=== PATIENT | female | born 1995 | race Two or more races ===

== ENCOUNTER 2022-06-13 23:03 | Day surgery (SDC) | payer OTHER ==
[2022-06-13 23:33] VITALS: BMI 26.0
[2022-06-14] MEDS ORDERED: hydrALAZINE 20 MG/ML VIAL SLOW IVP PRN (01:31)
[2022-06-14 01:59] LABS: Bilirubin Neg (Negative); Blood, Urine Negative (Negative); Clarity Clear (Clear); Glucose, Urine (Dipstick) Normal (Negative); Ketone, Urine 15 mg/dL (Negative); Leukocyte 25 (Negative); Nitrite Negative (Negative); Protein, Urine (Dipstick) 15 mg/dl (Neg-Trace); Specific Gravity, Urine 1.015 (1.005-1.030); Urobilinogen Normal mg/dL (Less than 2)
[2022-06-14 02:16] LABS: Bacteria/HPF None Seen HPF (None Seen); CAUTI Indications for Culture Dysuria,urgency,freq; RBC/HPF 0-3 HPF (0-3); Squamous Epithelial 0-3 HPF (0-3); Urine Culture Reflex No No; WBC/HPF 0-3 HPF (0-3)
== END 2022-06-14 04:15 | disposition home or self-care (01) ==
LOC: CSHLD/OP 23:03
PROVIDERS: ATTEND Obstetrics & Gynecology
DX: O99.513 Diseases of the respiratory system complicating pregnancy, third trimester (principal); R06.02 Shortness of breath; O26.893 Other specified pregnancy related conditions, third trimester; R10.30 Lower abdominal pain, unspecified; O21.2 Late vomiting of pregnancy; R51.9 Headache, unspecified; O23.593 Infection of other part of genital tract in pregnancy, third trimester; N89.8 Other specified noninflammatory disorders of vagina; R35.89 Other polyuria; Z3A.35 35 weeks gestation of pregnancy
CPT/HCPCS: 81001; 87086; 87480; 87510; 87660; 99285

== ENCOUNTER 2022-07-04 04:42 | Inpatient (IN) | payer MEDICAID, OTHER ==
[2022-07-04 05:23] VITALS: BMI 25.9
[2022-07-04 05:43] LABS: Fetal Membranes Rupture RUPTURE DETECTED (No Rupture)
[2022-07-04] MEDS ORDERED: Ondansetron PF 4 MG/2 ML Vial IVP PRN ×2 (05:56→11:04)
[2022-07-04] MEDS ORDERED: Tranexamic Acid 1,000 MG/10 ML VIAL IVP PRN (05:56)
[2022-07-04] MEDS ORDERED: hydrALAZINE 20 MG/ML VIAL SLOW IVP PRN (05:56)
[2022-07-04] MEDS ORDERED: Ibuprofen 800 MG TAB PO PRN (05:56)
[2022-07-04] MEDS ORDERED: Acetaminophen 500 MG TAB PO PRN (05:56)
[2022-07-04] MEDS ORDERED: Lidocaine 1% (PF) 30 ML VIAL SC PRN (05:56)
[2022-07-04] MEDS ORDERED: Carboprost 250 MCG/ML AMP IM PRN (05:56)
[2022-07-04] MEDS ORDERED: Promethazine HCl 25 MG/ML VIAL IM PRN ×2 (05:56→11:04)
[2022-07-04] MEDS ORDERED: Misoprostol 200 MCG TAB PR PRN (05:56)
[2022-07-04] MEDS ORDERED: Methylergonovine 0.2 MG/ML VIAL IM PRN (05:56)
[2022-07-04] MEDS ORDERED: NS w/ Oxytocin 30 units 500 ML IV SCH ×2 (06:00→06:15)
[2022-07-04 06:28] LABS: Hemoglobin 12.3 g/dL (12.0-15.5); Mean Corpuscular HGB CONC 33.5 g/dL (32.0-36.0); Mean Corpuscular Hemoglobin 26.7 pg (27.0-33.0); Mean Corpuscular Volume 79.8 fl (81.6-98.3); Mean Platelet Volume 11.5 fl (7.4-10.4); Platelet Count 164 10x3/uL (150-450); RBC Distribution Width 15.7 % (11.5-14.5); White Blood Cell (WBC) Count 8.2 10x3/uL (3.5-10.5)
[2022-07-04 07:01] LABS: Syphilis Antibody Nonreactive (Nonreactive); Syphilis Antibody Index 0.03 S/CO (<1.00 Non-Reactive)
[2022-07-04 07:02] LABS: HBSAg Index 0.12 S/CO (0-0.99); Hep B Surf Ag - L&D Non-Reactive S/CO (NonReactive)
[2022-07-04] MEDS ORDERED: Bupivacaine 0.25% HCL 30 ML VIAL ONE (08:00)
[2022-07-04] MEDS ORDERED: Fentanyl 2 mcg/Bup 0.1% Cadd 100 ML ONE (10:27)
[2022-07-04] MEDS ORDERED: Naloxone HCl 0.4 mg/ml Vial IVP PRN ×2 (11:04)
[2022-07-04] MEDS ORDERED: ePHEDrine Sulfate 50 MG/10 ML VIAL SLOW IVP PRN (11:04)
[2022-07-04] MEDS ORDERED: Moisturizing Cream (Eucerin) 113 GM JAR TOP PRN (11:04)
[2022-07-04] MEDS ORDERED: diphenhydrAMINE 50 MG/ML VIAL IVP PRN (11:04)
[2022-07-04] MEDS ORDERED: Acetaminophen 325 MG TAB PO PRN (11:04)
[2022-07-04] MEDS ORDERED: Lactated Ringer's 500 ML IV PRN (11:04)
[2022-07-04] MEDS ORDERED: Fentanyl 2 mcg/Bupivacaine 0.1% Cassette 100 ML EPIDURAL SCH (11:15)
[2022-07-04] MEDS ORDERED: Communication Order-Pharmacy FS SCH (11:15)
[2022-07-04] MEDS ORDERED: Penicillin G Potassium 5 MILL.UNITS VIAL ONE (13:27)
[2022-07-04] MEDS ORDERED: Penicillin G Potassium 5 MILL.UNITS in Sodium Chloride 0.9% 100 ML IVPB SCH (13:30)
[2022-07-04] MEDS: Penicillin G 2.5 MILL.units 2.5 MILL.UNITS in Premix Bag 1 BAG IVPB SCH ×2 (16:57→21:27)
[2022-07-05] MEDS: Penicillin G 2.5 MILL.units 2.5 MILL.UNITS in Premix Bag 1 BAG IVPB SCH ×2 (01:11→07:29)
[2022-07-05] MEDS ORDERED: hydrALAZINE 20 MG/ML VIAL SLOW IVP PRN (02:06)
[2022-07-05] MEDS ORDERED: Bisacodyl 10 MG SUPP PR PRN (02:06)
[2022-07-05] MEDS ORDERED: Boostrix 0.5 ML (Tdap) VIAL (>/=7 yrs of age) IM ONE (02:06)
[2022-07-05] MEDS ORDERED: Milk Of Magnesia 30 ML UDCUP PO PRN (02:06)
[2022-07-05] MEDS: Ibuprofen 800 MG TAB PO SCH ×3 (03:25→20:57)
[2022-07-05] MEDS: Ferrous Sulfate 325 MG TAB PO SCH ×2 (07:27→15:14)
[2022-07-05] MEDS: Docusate 100 MG CAP PO SCH ×2 (08:18→20:58)
[2022-07-05] MEDS ORDERED: Benzocaine-Menthol 82.5 ML CAN TOP PRN (08:36)
[2022-07-05] MEDS: HYDROcodone/Acetaminophen 5/325 mg Tablet PO PRN ×3 (09:07→21:01)
[2022-07-06 03:28] LABS: #Eosinphils 0.1 10x3/uL (0.0-0.5); #Monocytes 0.7 10x3/uL (0.0-1.1); #Neutrophils 6.1 10x3/uL (1.5-8.4); %Basophils 0.2 % (0.0-2.0); %Eosinophils 1.5 % (0.0-6.0); %Lymphocytes 24.7 % (18.0-47.0); %Monocytes 7.2 % (0.0-10.0); %Neutrophils 66.1 % (40.0-75.0); Hemoglobin 9.9 g/dL (12.0-15.5); Mean Corpuscular HGB CONC 32.5 g/dL (32.0-36.0); Mean Corpuscular Hemoglobin 26.8 pg (27.0-33.0); Mean Corpuscular Volume 82.7 fl (81.6-98.3); Mean Platelet Volume 11.7 fl (7.4-10.4); Platelet Count 155 10x3/uL (150-450); RBC Distribution Width 15.9 % (11.5-14.5); Red Blood Cell (RBC) Count 3.69 10x6/uL (3.90-5.03); White Blood Cell (WBC) Count 9.2 10x3/uL (3.5-10.5)
[2022-07-06] MEDS: Ibuprofen 800 MG TAB PO SCH ×3 (04:47→20:09)
[2022-07-06] MEDS: Ferrous Sulfate 325 MG TAB PO SCH ×2 (09:23→17:33)
[2022-07-06] MEDS: Docusate 100 MG CAP PO SCH ×2 (09:23→20:09)
[2022-07-07 07:49] VITALS: BP 123/82; TEMP 98.6
[2022-07-07] MEDS: HYDROcodone/Acetaminophen 5/325 mg Tablet PO PRN (11:09)
[2022-07-07] MEDS: Ferrous Sulfate 325 MG TAB PO SCH (11:10)
[2022-07-07] MEDS: Docusate 100 MG CAP PO SCH (11:10)
== END 2022-07-07 12:30 | disposition home or self-care (01) | DRG 806 ==
LOC: CSHLD/OP 04:42 → CSHLD 05:56 → CSHPP 07-05 05:55
PROVIDERS: ADMIT Obstetrics & Gynecology; ATTEND Obstetrics & Gynecology
PROC: 10E0XZZ Delivery of Products of Conception, External Approach (ICD-10-PCS; principal; 2022-07-05)
PROC: 0UQGXZZ Repair Vagina, External Approach (ICD-10-PCS; 2022-07-05)
DX: O42.92 Full-term premature rupture of membranes, unspecified as to length of time between rupture and onset of labor (principal); O71.4 Obstetric high vaginal laceration alone; Z37.0 Single live birth; Z3A.38 38 weeks gestation of pregnancy; O99.824 Streptococcus B carrier state complicating childbirth; O69.81X0 Labor and delivery complicated by cord around neck, without compression, not applicable or unspecified
CPT/HCPCS: 36415; 51702; 84112; 85025; 85027; 86780; 86850; 86900; 86901; 87340; 99285; J2540; S0020

== ENCOUNTER 2023-11-29 13:47 | Inpatient (IN) | payer OTHER ==
[~2023-11-29 13:47] MED LIST: Bupivacaine 0.25% HCL 30 ML VIAL ONE; ePHEDrine Sulfate 50 MG/10 ML VIAL ONE
[2023-11-29] MEDS ORDERED: Acetaminophen 500 MG TAB PO PRN (14:33)
[2023-11-29] MEDS ORDERED: Promethazine HCl 25 MG/ML VIAL IM PRN ×2 (14:33→15:42)
[2023-11-29] MEDS ORDERED: Docusate 100 MG CAP PO PRN (14:33)
[2023-11-29] MEDS ORDERED: Diphenoxylate HCl/Atropine Tablet PO PRN ×2 (14:33)
[2023-11-29] MEDS ORDERED: Carboprost 250 MCG/ML AMP IM PRN (14:33)
[2023-11-29] MEDS ORDERED: hydrALAZINE 20 MG/ML VIAL SLOW IVP PRN (14:33)
[2023-11-29] MEDS ORDERED: Ondansetron PF 4 MG/2 ML Vial IVP PRN ×2 (14:33→15:42)
[2023-11-29] MEDS ORDERED: Lidocaine 1% (PF) 30 ML VIAL SC PRN (14:33)
[2023-11-29] MEDS ORDERED: Misoprostol 200 MCG TAB PR PRN (14:33)
[2023-11-29] MEDS ORDERED: Tranexamic Acid 1,000 MG/10 ML VIAL IVP PRN (14:33)
[2023-11-29] MEDS ORDERED: Ibuprofen 800 MG TAB PO PRN (14:33)
[2023-11-29] MEDS ORDERED: Methylergonovine 0.2 MG/ML VIAL IM PRN (14:33)
[2023-11-29] MEDS ORDERED: Oxytocin 30 units/NS 500 ML 500 ML IV SCH (14:45)
[2023-11-29 15:05] LABS: Hemoglobin 14.6 g/dL (12.0-15.5); Mean Corpuscular Hemoglobin 29.1 pg (27.0-33.0); Mean Corpuscular Volume 85.7 fL (81.6-98.3); Mean Platelet Volume 12.2 fL (7.4-10.4); Platelet Count 158 10x3/uL (150-450); RBC Distribution Width 13.6 % (11.5-14.5); Red Blood Cell (RBC) Count 5.02 10x6/uL (3.90-5.03); White Blood Cell (WBC) Count 6.6 10x3/uL (3.5-10.5)
[2023-11-29 15:20] LABS: Syphilis Antibody Nonreactive (Nonreactive); Syphilis Antibody Index 0.03 S/CO (<1.00 Non-Reactive)
[2023-11-29 15:21] LABS: HBsAg Index 0.22 S/CO (0-0.99); Hep B Surf Ag - L&D Non-Reactive S/CO (NonReactive)
[2023-11-29] MEDS ORDERED: Penicillin G Potassium 5 MILL.UNITS in Sodium Chloride 0.9% 100 ML IVPB SCH (15:30)
[2023-11-29] MEDS: fentaNYL/Ropivacaine Epidural 100 ML ONE (15:35)
[2023-11-29] MEDS ORDERED: ePHEDrine Sulfate 50 MG/10 ML VIAL SLOW IVP PRN (15:42)
[2023-11-29] MEDS ORDERED: Naloxone HCl 0.4 mg/ml Vial IVP PRN ×2 (15:42)
[2023-11-29] MEDS ORDERED: Lactated Ringer's 500 ML IV PRN (15:42)
[2023-11-29] MEDS ORDERED: diphenhydrAMINE 50 MG/ML VIAL IVP PRN (15:42)
[2023-11-29] MEDS ORDERED: Moisturizing Cream (Eucerin) 113 GM JAR TOP PRN (15:42)
[2023-11-29] MEDS ORDERED: Communication Order-Pharmacy FS SCH (15:45)
[2023-11-29] MEDS ORDERED: fentaNYL 2 mcg/Ropivacaine 0.2% Epidural 100 ML CADD EPIDURAL SCH (15:45)
[2023-11-29 15:56] VITALS: BMI 26.9
[2023-11-29 17:46] LABS: HIV (1/2) Antibody/Antigen Non-Reactive (NonReactive); HIV 1/2 INDEX 0.08 S/CO (<1.00)
[2023-11-29] MEDS ORDERED: Milk Of Magnesia 30 ML UDCUP PO PRN (17:49)
[2023-11-29] MEDS ORDERED: Bisacodyl 10 MG SUPP PR PRN (17:49)
[2023-11-29] MEDS: Ibuprofen 800 MG TAB PO SCH (21:06)
[2023-11-29] MEDS: Oxytocin 30 units/NS 500 ML 500 ML ONE (21:06)
[2023-11-29] MEDS: Boostrix 0.5 ML (Tdap) VIAL (>/=7 yrs of age) IM ONE (21:07)
[2023-11-29] MEDS: Penicillin G 2.5 MILL.units 2.5 MILL.UNITS in Premix 1 BAG IVPB SCH (21:07)
[2023-11-30] MEDS: Ferrous Sulfate 325 MG TAB PO SCH (08:00)
[2023-11-30] MEDS: Acetaminophen 325 MG TAB PO PRN (10:42)
[2023-12-01 05:14] VITALS: TEMP 98.4
[2023-12-01 07:36] VITALS: BP 112/66
[2023-12-01] MEDS: Benzocaine-Menthol 82.5 ML CAN TOP PRN (16:34)
== END 2023-12-01 16:45 | disposition home or self-care (01) | DRG 807 ==
LOC: CSHLD 13:47 → CSHPED 20:20
PROVIDERS: ADMIT Family Medicine; ATTEND Family Medicine
PROC: 10E0XZZ Delivery of Products of Conception, External Approach (ICD-10-PCS; principal; 2023-11-29)
PROC: 0HQ9XZZ Repair Perineum Skin, External Approach (ICD-10-PCS; 2023-11-29)
DX: O99.824 Streptococcus B carrier state complicating childbirth (principal); Z37.0 Single live birth; O24.420 Gestational diabetes mellitus in childbirth, diet controlled; Z3A.39 39 weeks gestation of pregnancy; Z79.899 Other long term (current) drug therapy; O70.0 First degree perineal laceration during delivery; O69.81X0 Labor and delivery complicated by cord around neck, without compression, not applicable or unspecified; O99.892 Other specified diseases and conditions complicating childbirth; N89.8 Other specified noninflammatory disorders of vagina
CPT/HCPCS: 51702; 85027; 86780; 86850; 86900; 86901; 87340; 87389; J0665; J2590